=== PATIENT | male | born 1940 | race Caucasian/White ===

== ENCOUNTER → 2016-08-23 | Outpatient (CLI) | payer MEDICARE, BC ==
[~2016-08-23] MED LIST: 1-ME1LIQ PO; ADVA250A INH; ADVAI250I PO; AMLO10 PO; AMLO10TA2 PO; ASPI81TA82 PO; ATEN-100 PO; ATEN25TA PO; ERTA1P IV; LEVO50TA4 PO; VITA10002 PO
[2016-08-23 13:14] LABS: BACTERIA, URINE MANY /hpf; BLOOD, URINE SMALL (NEG); GLUCOSE,URINE NEG (NEG); KETONE, URINE NEG (NEG); MUCUS URINE FEW /lpf (OCC); NITRITE,URINE NEG (NEG); SQUAMOUS EPITHELIAL CELL URINE <1 /hpf (0-5); URINE COLOR YELLOW (YELLW/STRAW)
== END ==
LOC: PLAB 11:04
PROVIDERS: ATTEND Family Medicine
DX: R82.90 Unspecified abnormal findings in urine (principal); R31.9 Hematuria, unspecified; N39.0 Urinary tract infection, site not specified
CPT/HCPCS: 81001

== ENCOUNTER 2016-08-26 18:15 | Inpatient (IN) | payer MEDICARE, BC ==
[~2016-08-26 18:15] MED LIST changes: -ADVA250A INH; -AMLO10 PO; -AMLO10TA2 PO; -ATEN25TA PO
[2016-08-26] MEDS ORDERED: SODIUM CHLORIDE 0.9% FLUSH 5 ML FLUSH FLUSH PRN (19:15)
[2016-08-26] MEDS ORDERED: NALOXONE HCL 0.4 MG/ML AMP IV PRN (19:15)
[2016-08-26] MEDS ORDERED: SENNOSIDES 8.6 MG TAB PO PRN (19:15)
[2016-08-26] MEDS ORDERED: ACETAMINOPHEN 325 MG TAB PO PRN (19:15)
[2016-08-26 19:30] LABS: AUTOMATED NEUTROPHIL # 9.2 TH/MM3 (1.8-7.7); BASOPHIL # 0.1 TH/MM3 (0-0.2); BASOPHIL % 0.4 % (0.0-2.0); EOSINOPHIL # 0.1 TH/MM3 (0-0.4); EOSINOPHIL % 0.5 % (0.0-4.0); HEMO FLAGS DIFF FINAL; LYMPH % 14.6 % (9.0-44.0); LYMPHOCYTE # 1.8 TH/MM3 (1.0-4.8); MEAN CELL VOLUME 78.1 FL (80.0-100.0); MEAN CORPUSCULAR HEMOGLOBIN 25.9 PG (27.0-34.0); MEAN CORPUSCULAR HGB CONC 33.2 % (32.0-36.0); MONO % 10.6 % (0.0-8.0); NEUT % 73.9 % (16.0-70.0); PLATELET COUNT 196 TH/MM3 (150-450); RED BLOOD COUNT 4.61 MIL/MM3 (4.50-5.90); RED CELL DISTRIBUTION WIDTH 15.4 % (11.6-17.2); WHITE BLOOD COUNT 12.5 TH/MM3 (4.0-11.0)
[2016-08-26 19:37] LABS: CHLORIDE 104 MEQ/L (98-107); POTASSIUM 3.5 MEQ/L (3.5-5.1); SODIUM (NA) 140 MEQ/L (136-145)
[2016-08-26 19:41] LABS: ANION GAP 9 MEQ/L (5-15); BICARBONATE 26.8 MEQ/L (21.0-32.0); BLOOD UREA NITROGEN 20 MG/DL (7-18)
[2016-08-26 19:44] LABS: ALT (GPT) 24 U/L (12-78); AST (GOT) 17 U/L (15-37); GLOMERULAR FILTRATION RATE 54 ML/MIN (>89)
[2016-08-26 19:46] LABS: TOTAL BILIRUBIN ADULT 0.4 MG/DL (0.2-1.0)
[2016-08-26 19:47] LABS: ALKALINE PHOSPHATASE 55 U/L (45-117)
[2016-08-26 20:00] VITALS: BP 132/83; PULSE 68; RESP 16; TEMP 98.8; O2SAT 94
[2016-08-26] MEDS: HEPARIN SODIUM - SQ 10,000 UNITS/ML VIAL SQ SCH (21:03)
[2016-08-26] MEDS: BUDESONIDE-FORMOTEROL 160/4.5 MCG INHALER INH SCH (21:04)
[2016-08-26] MEDS: SODIUM CHLORIDE 0.9% FLUSH 5 ML FLUSH FLUSH SCH (21:04)
[2016-08-26] MEDS: IMIPENEM/CILASTATIN INJ 500 MG in SODIUM CHLORIDE 0.9% INJ 100 ML IV SCH (21:33)
[2016-08-26 23:00] VITALS: O2SAT 96
[2016-08-26 23:03] LABS: GLUCOSE,URINE NEG (NEG); KETONE, URINE NEG (NEG)
[2016-08-26 23:21] LABS: BLOOD, URINE MOD (NEG); METHOD OF COLLECTION CLEAN CATCH; NITRITE,URINE POS (NEG); URINE COLOR YELLOW (YELLW/STRAW)
[2016-08-26 23:22] LABS: MUCUS URINE OCC /lpf (OCC)
[2016-08-26 23:23] LABS: BACTERIA, URINE FEW /hpf; COMMENT (UR) CULTURE INDICATED; CULTURE IF INDICATED CULTURE INDICATED; SQUAMOUS EPITHELIAL CELL URINE 0-5 /hpf (0-5); WBC, URINE 100-200 /hpf (0-5)
[2016-08-27] VITALS: BP 114/54; PULSE 62; RESP 16; TEMP 97.8; O2SAT 94
[2016-08-27] MEDS: IMIPENEM/CILASTATIN INJ 500 MG in SODIUM CHLORIDE 0.9% INJ 100 ML IV SCH (02:56)
[2016-08-27 05:39] LABS: AUTOMATED NEUTROPHIL # 7.9 TH/MM3 (1.8-7.7); BASOPHIL % 0.2 % (0.0-2.0); EOSINOPHIL # 0.1 TH/MM3 (0-0.4); EOSINOPHIL % 0.6 % (0.0-4.0); HEMATOCRIT 34.5 % (39.0-51.0); HEMO FLAGS DIFF FINAL; LYMPH % 11.9 % (9.0-44.0); LYMPHOCYTE # 1.2 TH/MM3 (1.0-4.8); MEAN CELL VOLUME 77.9 FL (80.0-100.0); MEAN CORPUSCULAR HEMOGLOBIN 26.2 PG (27.0-34.0); MEAN CORPUSCULAR HGB CONC 33.6 % (32.0-36.0); MONO % 9.4 % (0.0-8.0); NEUT % 77.9 % (16.0-70.0); PLATELET COUNT 175 TH/MM3 (150-450); RED BLOOD COUNT 4.43 MIL/MM3 (4.50-5.90); RED CELL DISTRIBUTION WIDTH 15.3 % (11.6-17.2); WHITE BLOOD COUNT 10.1 TH/MM3 (4.0-11.0)
[2016-08-27] MEDS: LEVOTHYROXINE SODIUM 50 MCG TAB PO SCH (06:20)
--- NOTE | 2016-08-27 06:59 | MH ---
cc: JOSE MEDELLIN M.D. DATE OF ADMISSION: 08/26/2016 CHIEF COMPLAINT Fever. Dysuria. ADMISSION DIAGNOSIS 1. Urinary tract infection with ESBL bacteria. 2. History of abdominal seroma status post urinary neobladder placement. HISTORY OF PRESENT ILLNESS Mr. Ford is a 76-year-old white male with a complicated past medical history. He was had three hospitalizations in the past six months with urinary tract infections and potentially infected abdominal seroma. He has been doing well with his last visit with me about two weeks ago without any fevers since his last hospitalization and IV antibiotics in May when he suddenly started developing some discomfort with urination, cloudy urine and then developed fever to 101 that started on August 22. Over the weekend he has had fevers running 100-101, maybe down to 99 after Tylenol and Motrin. He has noted intermittent low back pain that seems to be resolved with urination. He has had some lower abdominal discomfort but nothing severe. He has had generalized weakness, fatigue, decreased appetite, generally not feeling great. PAST MEDICAL HISTORY: Significant for - 1. Chronic obstructive pulmonary disease. 2. Hypertension. 3. History of thyroid nodule. 4. Vitamin B12 deficiency. 5. Bladder cancer. 6. Sleep apnea. 7. History of basal cell skin cancer. 8. Chronic anemia. 9. Urinary tract infections since March of 2016. 10. Postoperative seroma involving the system over the past year. 11. History of parathyroid nodule. PAST SURGICAL HISTORY 1. Parathyroidectomy in 1974. 2. Knee replacement left in 2012. 3. Bladder resection and neobladder placed in 2004 at [facility]. 4. Basal cell cancer resection of the nose in 2003. 5. Hernia repair inguinal in 2004 about the time of his bladder cancer removal. SOCIAL HISTORY He is . He has a significant other currently. 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 He is a college education. He has rare alcohol. He is a 40 pack-year history smoker, quit in 2004. He has no illicit drug use. MEDICATIONS 1. Bumex 0.5 mg daily for edema. 2. Amlodipine 10 mg daily . 3. Atenolol 25 mg daily. 4. Levothyroxine 50 mcg daily. 5. Advair Diskus 250/50 micrograms one puff p.o. b.i.d. 6. 5000 mcg/mL of vitamin B12 drops daily. 7. C-PAP at night. ALLERGIES No known drug allergies. FAMILY HISTORY Dad of Parkinson's disease at age 77. He had grandparents with cardiovascular disease, stroke, colon cancer and lordosis. Mom at age 74 with Alzheimer's. He does have a son who is present with him in the hospital today, apparently healthy. VACCINATIONS He had a shingles vaccine in 2014. Pneumococcal vaccines in the past, Prevnar given 05/2015. Tetanus vaccine given July 2015. He had his flu vaccine June 12, 2016. REVIEW OF SYSTEMS No upper respiratory infections, no ear pain, no sore throat, no neck discomfort. No cough, no sputum production, no chest discomfort. He has shortness of breath that he relates to the abdominal distension and significant difficulty with bending over and with activity. He has decreased appetite. No nausea, vomiting. No hematochezia or melena. He has had increased abdominal distension despite decreased p.o. intake. He has also had increasing weight despite his change in appetite. He has some lower abdominal discomfort and low back discomfort, dysuria, cloudy urine, no blood in his urine, no changes to his stools. He has had no lower extremity edema. No other skin changes. No rashes. No other signs or symptoms of infection. General malaise. Remainder of his review of systems are negative. OBJECTIVE VITAL SIGNS: I do not have vital signs taken at the time of his initially being seen in the hospital. His pulse rate was in the 70s and regular. He had a log of his temperatures which have gone up to 101 earlier in the day today. IN GENERAL: He is an elderly white male laying in bed, able to get to sitting position with minimal difficulty, speaking without difficulty. He does not seem to have any dizziness with stability. His son is present on exam. HEENT: Pupils equal, reactive. Oropharynx is benign. NECK: Supple without lymphadenopathy. No thyromegaly. No supraclavicular adenopathy. CARDIOVASCULAR: Regular rate and rhythm, somewhat distant. No murmurs audible. LUNGS: Clear to auscultation bilaterally. No wheezes, no rhonchi. Slightly diminished breath sounds. No wheezes. ABDOMEN: Significantly protuberant. He has extensive scarring to the abdomen from his prior surgeries. Positive fluid wave, mild lower abdominal tenderness. Mild heat and lower abdomen but no erythema, no skin lesions that are open. BACK: There is no rash noted to the back other than benign seborrheic keratoses. LOWER EXTREMITIES: No edema. No rashes. No skin lesions. Significant for infection. 1+ dorsalis pedis pulses. He is moving his lower extremities without difficulty. LABORATORY DATA Pending his CBC, blood cultures, lactic acid but those have been ordered. His urinalysis done through my office, results on 08/25/2016 showed greater than 100,000 colonies/mL of Escherichia coli which is resistant to ampicillin, Augmentin, cefazolin, cefepime, ceftriaxone Cipro, gentamicin, Levaquin, nitrofurantoin and Septra. It is sensitive to ertapenem less than 0.5, imipenem less than 0.25, piperacillin/tazobactam 16, tobramycin intermediate at 8. ASSESSMENT AND PLAN 1. ESBL urinary tract infection with potential sepsis. He has had fever to 101, no current tachycardia. Pending his white blood cell count, pending blood cultures. He has had aspiration of his seroma fluid twice in the past 6 months. He has previously had the neobladder placed at the time of his bladder cancer surgery. There was a question of whether he may have had infected mesh and infected seroma back in May at the time of the hospital admission. Also there was a concern that he may have a leak between the neobladder and the seroma. He has previously been seen by Dr. Clark in surgery who really preferred not to do surgery if at all possible due to the risk to the patient. I spoke with Dr. Palomino who is a urologist surgeon up at [facility] who has taken over for his previous surgeon who did his bladder surgery. He currently has his records and is pending a potential consult/evaluation for this issue. He did suggest that if we were to aspirate fluid from the seroma, that we check it for creatinine to see is there is a potential connection between his neobladder and the seroma. This has not been done in the past. We will check an ultrasound of the abdomen and kidneys tomorrow and then potentially consider further aspiration. I have placed him on imipenem overnight and placed a consult to Infectious Disease. He states that the last time I placed him on IV antibiotics at home, the cost was extraordinary and we will need to make sure he does have some sort of coverage at the time of discharge. 2. Abdominal seroma. Consider aspiration tomorrow. However, in the past once he has had aspiration, the fluids has reaccumulated within a few weeks with recurrent shortness of breath. May remove fluid only if needed for diagnostic matters. 3. Hypertension. His blood pressure has been pretty well controlled at home on his current medications. I have written for his blood pressure medications here. We will adjust as needed depending upon his blood pressure readings. Caution if there is any sepsis. 4. History of bladder cancer. There has not been any sign of recurrence. He did have evaluation with Dr. Porter locally over the past year. 5. Hypothyroidism. He will continue his usual home meds. 6. Anemia. He had been stable over years. We will recheck a CBC at this point. There have been no signs of any definite bleeding. 7. Sleep apnea. We will continue him on his C-PAP that he may bring in from home. MD RAVI Valera/PAMELA /9:51 PM /6:27 AM
[2016-08-27 09:00] VITALS: BP 154/91; PULSE 74; RESP 18; TEMP 99.9; O2SAT 94
[2016-08-27] MEDS: IMIPENEM/CILASTAT 500 MG in NS MINIBAG 100 ML IV SCH ×3 (09:00→21:30)
--- NOTE | 2016-08-27 09:31 | RADHPO ---
EXAM DATE/TIME: 08/27/2016 07:44 [facility] COMPARISON: CT ABDOMEN & PELVIS W CONTRAST, May 16, 2016, 15:19. EXTERNAL COMPARISON : [facility], US KIDNEY - BILATERAL, February 27, 2016 INDICATIONS : Abdominal pain. MEDICAL HISTORY : Hypertension. Chronic obstructive pulmonary disease. Carcinoma, bladder. Asthma. Sleep apnea. Dyspnea . UTI. Diabetes. Anxiety. Anticoagulant therapy, Aspirin 81mg. ESBL+Ecoli. SURGICAL HISTORY : Thyroidectomy. Total knee replacement, left. Neobladder. Partial prostate removal. ENCOUNTER: Initial ACUITY: 1 day PAIN SCORE: 110 LOCATION: Abdomen. MEASUREMENTS: LIVER: 22.2 cm length COMMON DUCT: 5 mm RIGHT KIDNEY: 13.0 x 7.1 x 5.8 cm LEFT KIDNEY: 13.4 x 7.2 x cm SPLEEN: 12.3 cm length AORTA: 1.4cm maximal FINDINGS: LIVER: The liver demonstrates homogeneous increased echotexture compared with the adjacent renal cortex cons istent with diffuse fatty infiltration. There are multiple small well-circumscribed appearances are s een, unchanged from prior CT. COMMON DUCT: No intraluminal mass or stone visualized. GALLBLADDER: Contains no stones, demonstrates no wall thickening or pericholecystic fluid. PANCREAS: The visualized portions are within normal limits. RIGHT KIDNEY: No evidence of hydronephrosis or concerning solid mass. Multiple well-circumscribed simple appearing cyst and small echogenic stones are noted. LEFT KIDNEY: No evidence of hydronephrosis or concerning renal mass. Multiple well-circumscribed simple appearing cyst and small nonobstructing echogenic stones. SPLEEN: No focal lesion. AORTA: Non aneurysmal. IVC: Within normal limits. There is a large loculated simple appearing fluid collection identified within the midline abdomen wh ich is grossly unchanged as compared to the prior CT. Current measurements are 18.7 cm transversely b y 23.4 cm craniocaudally by 6 cm anterior-posterior. CONCLUSION: Essentially stable exam. No evidence of concerning hepatic or renal mass. Stable loculated fluid john ection identified within the midline abdomen.. Tiffany Peralta MD on August 27, 2016 at 9:23 Board Certified Radiologist. This report was verified electronically.
[2016-08-27] MEDS: SODIUM CHLORIDE 0.9% FLUSH 5 ML FLUSH FLUSH SCH ×2 (10:30→21:29)
[2016-08-27] MEDS: ATENOLOL 25 MG TAB PO SCH (10:30)
[2016-08-27] MEDS: HEPARIN SODIUM - SQ 10,000 UNITS/ML VIAL SQ SCH ×2 (10:31→21:34)
[2016-08-27] MEDS: BUDESONIDE-FORMOTEROL 160/4.5 MCG INHALER INH SCH ×2 (10:31→21:29)
[2016-08-27 12:00] VITALS: BP 145/98; PULSE 71; RESP 18; TEMP 99.2; O2SAT 96
--- NOTE | 2016-08-27 12:22 | HHI.FPPN ---
Subjective Remarks Feeling worse today, more worn out. No documented fever overnight. Had another episode of back pain that improved with urination. No n/v. no chest pain or SOB , just feeling blah. Objective Vitals Vital Signs Date Time Temp Pulse Resp B/P Pulse Ox O2 Delivery O2 Flow Rate FiO2 08/27/16 09:00 99.9 74 18 154/91 94 08/27/16 00:00 97.8 62 16 114/54 94 08/26/16 23:00 96 21 08/26/16 20:00 98.8 68 16 132/83 94 I/O 08/26/16 08/26/16 08/26/16 08/27/16 08/27/16 08/27/16 07:00 15:00 23:00 07:00 15:00 23:00 Intake Total 400 ml 580 ml Balance 400 ml 580 ml Intake Oral 400 ml 580 ml # Voids 2 2 # Bowel Movements 0 0 Result Diagram: 08/27/16 0445 08/26/161914 Imaging pending u/s of abdomen Objective Remarks Gen: obese WM, sitting to the side of the bed, looking more fatigued, very warm to touch although temp was recently wnl CV: RRR, no murmur Lungs: CTA bilaterally Abd: protuberant, nontender, no CVA tender, Ext: no edema, good ROM Urinary Catheter: No Vascular Central Line Catheter: No A/P Problem List: (1) Urinary tract infection Status: Acute Plan: ESBL bacteria on culture from 10/21/16. Now on imipenem pending ID consult. I have also placed a call to urologic surgeon at [facility] due to his prior bladder cancer, neobladder and hernia mesh present. He has a seroma that is about unchanged in size from May. I have discussed with radiology regarding possible paracentesis but with his mesh, I'd prefer not to risk further infection by entering into the seroma if at all possible. continue the antibiotics for now. WBC was 12.5 last PM with left shift, better today, lactic acid negative. (2) ESBL (extended spectrum beta-lactamase) producing bacteria infection Status: Acute Plan: Now on imipenem and pending ID consult as required. (3) Abdominal wall fluid collections Status: Acute Plan: abdominal seroma. Not sure if it is linked to his neobladder or separate. It keeps reaccumulating when drained. It causes increased SOB with activity and bending. He vfeels much better after drained. (4) Obstructive sleep apnea Status: Acute Plan: use CPAP at night (5) Sepsis Status: Acute Plan: fever to 101, elevated WBC at 12, UTI with ESBL bacteria. negative lactic acid x2 (6) History of bladder cancer Status: Resolved Plan: s/p resection at [facility] in 2004 Problem Qualifiers (1) Urinary tract infection: Qualified Code: N30.00 - Acute cystitis without hematuria (2) Sepsis: Qualified Code: A41.51 - Sepsis due to Escherichia coli Kenia Barraza MD Aug 27, 2016 12:22
[2016-08-27] MEDS ORDERED: ONDANSETRON ODT 4 MG TAB PO PRN (12:30)
[2016-08-27 14:42] LABS: CHLORIDE 107 MEQ/L (98-107); POTASSIUM 3.5 MEQ/L (3.5-5.1); SODIUM (NA) 142 MEQ/L (136-145)
[2016-08-27 14:45] LABS: ANION GAP 8 MEQ/L (5-15); BICARBONATE 26.6 MEQ/L (21.0-32.0); BLOOD UREA NITROGEN 21 MG/DL (7-18)
[2016-08-27 14:48] LABS: ALT (GPT) 22 U/L (12-78); AST (GOT) 15 U/L (15-37); GLOMERULAR FILTRATION RATE 65 ML/MIN (>89)
[2016-08-27 14:50] LABS: TOTAL BILIRUBIN ADULT 0.4 MG/DL (0.2-1.0)
[2016-08-27 14:51] LABS: ALKALINE PHOSPHATASE 50 U/L (45-117)
[2016-08-27 16:00] VITALS: BP 153/86; PULSE 73; RESP 18; TEMP 100.5; O2SAT 94
[2016-08-27 20:00] VITALS: BP 125/66; PULSE 69; RESP 18; TEMP 99.7; O2SAT 92
[2016-08-28] VITALS: BP 123/56; PULSE 66; RESP 20; TEMP 98.8; TEMP 99.2; O2SAT 94
[2016-08-28] MEDS: IMIPENEM/CILASTAT 500 MG in NS MINIBAG 100 ML IV SCH ×4 (02:40→23:47)
[2016-08-28] MEDS: LEVOTHYROXINE SODIUM 50 MCG TAB PO SCH (06:42)
[2016-08-28 08:00] VITALS: BP 123/78; PULSE 63; RESP 20; TEMP 98.1; O2SAT 94
[2016-08-28] MEDS: HEPARIN SODIUM - SQ 10,000 UNITS/ML VIAL SQ SCH ×2 (08:38→22:56)
[2016-08-28] MEDS: SODIUM CHLORIDE 0.9% FLUSH 5 ML FLUSH FLUSH SCH ×2 (08:38→22:58)
[2016-08-28] MEDS: ATENOLOL 25 MG TAB PO SCH (08:38)
[2016-08-28] MEDS: BUDESONIDE-FORMOTEROL 160/4.5 MCG INHALER INH SCH ×2 (08:39→22:56)
--- NOTE | 2016-08-28 08:42 | HHI.FPPN ---
Subjective Remarks Feels better today, wants to go home. No more nausea, energy is better, states urine is still cloudy but clearer than admit. has been active in the room, no more back pain. Objective Vitals Vital Signs Date Time Temp Pulse Resp B/P Pulse Ox O2 Delivery O2 Flow Rate FiO2 08/28/16 00:00 98.8 66 20 123/56 94 08/27/16 20:00 99.7 69 18 125/66 92 08/27/16 16:00 100.5 73 18 153/86 94 08/27/16 12:00 99.2 71 18 145/98 96 08/27/16 09:00 99.9 74 18 154/91 94 I/O 08/27/16 08/27/16 08/27/16 08/28/16 08/28/16 08/28/16 07:00 15:00 23:00 07:00 15:00 23:00 Intake Total 580 ml 660 ml 610 ml 615 ml Balance 580 ml 660 ml 610 ml 615 ml Intake Oral 580 ml 660 ml 480 ml 480 ml IV Total 130 ml 135 ml # Voids 2 3 3 2 # Bowel Movements 0 2 0 Result Diagram: 08/27/165 08/27/165 Objective Remarks Gen: obese WM, sitting to the side of the bed, looking better today, no longer warm to touch Lungs: CTA bilaterally Abd: protuberant, nontender, no CVA tender, Ext: no edema, good ROM Urinary Catheter: No Vascular Central Line Catheter: No A/P Problem List: (1) Urinary tract infection Status: Acute Plan: ESBL bacteria on culture from 10/21/16. Now on imipenem pending ID consult. I spoke with Dr. Palomino at [facility] and he has pt set with their reconstructive surgeon Sep [address] the seroma. CT scan from a few months ago showed that the seroma was linked to the hernia mesh and not to the neobladder. He wants the UTI cleared prior to proceeding with the seroma eval. I have discussed with radiology regarding possible paracentesis but with his mesh, I'd prefer not to risk further infection by entering into the seroma if at all possible. continue the antibiotics for now. WBC was 12.5 last PM with left shift, better today, lactic acid negative. recheck CBC tomorrow and UA (2) ESBL (extended spectrum beta-lactamase) producing bacteria infection Status: Acute Plan: Now on imipenem and pending ID consult as required. I spoke with case drake. Syed from last discharge was not covered by insurance. He may need to do short term rehab for imipenim dosing. Will see if ID has any further suggestions. blood cultures negative to date. (3) Abdominal wall fluid collections Status: Acute Plan: abdominal seroma. Not sure if it is linked to his neobladder or separate (CT scan said it was linked to hernia mesh and not to the neobladder). It keeps reaccumulating when drained. It causes increased SOB with activity and bending. He feels much better after drained. Pending reconstructive surgery consult. (4) Obstructive sleep apnea Status: Acute Plan: use CPAP at night (5) Sepsis Status: Acute Plan: fever to 101, elevated WBC at 12, UTI with ESBL bacteria. negative lactic acid x2, blood cultures negative to date. (6) History of bladder cancer Status: Resolved Plan: s/p resection at [facility] in 2004 Problem Qualifiers (1) Urinary tract infection: Qualified Code: N30.00 - Acute cystitis without hematuria (2) Sepsis: Qualified Code: A41.51 - Sepsis due to Escherichia coli Kenia Barraza MD Aug 28, 2016 08:42
[2016-08-28 12:00] VITALS: BP 130/71; PULSE 65; RESP 20; TEMP 98.2; O2SAT 93
[2016-08-28 16:00] VITALS: BP 161/77; PULSE 64; RESP 20; TEMP 98; O2SAT 97
[2016-08-28] MEDS ORDERED: IMIPENEM/CILASTATIN INJ 500 MG in SODIUM CHLORIDE 0.9% INJ 100 ML IV SCH (17:00)
--- NOTE | 2016-08-28 17:27 | PD.ID.CON ---
History of Present Illness Service ID Consult Requested By dr Hernandez Primary Care Physician Kenia Barraza MD Diagnoses: History of Present Illness Pt known to me 76 yo M H/o bladder cancer sp neobladder, h/o kchronic abd wall collectionpresnted to his PCP office few days ago with fever lower back pain. Urine was abnormal and he grew out ESBL + organism Starte on Primaxin Feels better today and afebrile In pt urine clx cw contam BC neg so far Review of Systems Other as per history of present illness, the rest of 12 point review is otherwise negative Past Family Social History Allergies: Coded Allergies: *MDRO Multi-Drug Resistant Organism (Verified Adverse Reaction, Unknown, 05/20/16) ESBL+E.Coli (urine-05/16/16) Past Medical History COPD Obstructive sleep apnea Hypertension Bladder ca post operative seroma thyroid nodule parathyroid nodule frequent recurrent UTIs Past Surgical History bladder resection and neobladder creation in 2004 hernia repair 2005 knee replacement in 1992 remote parathyroid nodule removal Active Ordered Medications Medications where reviewed in EMR Antibiotics Include: primaxin Family History Non-Contributory. Social History quit tobacco in 2004 rare ETOH. No Illicit Drugs. retired Physical Exam Vital Signs Vital Signs Date Time Temp Pulse Resp B/P Pulse Ox O2 Delivery O2 Flow Rate FiO2 08/28/16 12:00 98.2 65 20 130/71 93 08/28/16 08:00 98.1 63 20 123/78 94 08/28/16 00:00 98.8 66 20 123/56 94 08/27/16 20:00 99.7 69 18 125/66 92 Physical Exam CONSTITUTIONAL/GENERAL: This is an obese elcerly patient, in no apparent distress. TUBES/LINES/DRAINS: SKIN: No jaundice, rashes, or lesions. kin temperature appropriate. Not diaphoretic. HEAD: Atraumatic. Normocephalic. EYES: Pupils equal and round and reactive. Extraocular motions intact. No scleral icterus. No injection or drainage. Fundi not examined. ENT: Hearing grossly normal. Nose without bleeding or purulent drainage. oral mucosae without visible erythema, exudates, masses, or lesions. NECK: Trachea midline. Supple, nontender. No palpable thyroid enlargement or nodularity. CARDIOVASCULAR: Regular rate and rhythm without murmurs, gallops, or rubs. No JVD. Peripheral pulses symmetric. RESPIRATORY/CHEST: Symmetric, unlabored respirations. Clear to auscultation. Breath sounds equal bilaterally. No wheezes, rales, or rhonchi. GASTROINTESTINAL: Abdomen soft, non-tender, nondistended. No hepato-splenomegaly , or palpable masses. No guarding. Bowel sounds present. Multiple scars cw past surg hx Palpable fluctuant noon tender mass w/o skin changes over it GENITOURINARY: Without palpable bladder distension. Fox catheter in place. MUSCULOSKELETAL: Extremities without clubbing, cyanosis, + trace edema. No joint tenderness or effusion noted. + varices No mottling or clubbing. LYMPHATICS: No palpable cervical or supraclavicular adenopathy. NEUROLOGICAL: Awake and alert. Motor and sensory grossly within normal limits. Follows commands. Normal speech. Moves all extremities. PSYCHIATRIC: No obvious anxiety/depression. no apparent hallucinations or other psychotic thought process. Laboratory Date/Time Procedure Status Source Growth 08/26/16 22:50 Urine Culture - Final Complete Urine Clean Catch 10-50,000 CFU/ML MIXED SHABNAM... 08/26/16 19:15 Aerobic Blood Culture - Preliminary Resulted Blood Peripheral NO GROWTH IN 2 DAYS 08/26/16 19:15 Anaerobic Blood Culture - Preliminary Resulted Blood Peripheral NO GROWTH IN 2 DAYS Result Diagram: 08/27/16 0445 08/27/16 0445 Imaging Last Impressions Abdomen Ultrasound 08/27/16 0000 Signed Impressions: Service Date/Time: Saturday, August 27, 2016 07:44 - CONCLUSION: Essentially stable exam. No evidence of concerning hepatic or renal mass. Stable loculated fluid collection identified within the midline abdomen.. Tiffany Peralta MD Assessment and Plan Assessment and Plan Complicated UTI in a pt with neobladder 2/2 ESBL+ - improving on current abx Rexcurrent UTI Chronic abd wall fluid col,llection related to mesh - cont Primaxin or Ertapenem - PICC line - follow BC untill final - dw case mngmt tomorrow Discussed Condition With Dr Hernandez pt and spouse at [facility] Eva Silva MD Aug 28, 2016 17:27
[2016-08-28 20:00] VITALS: BP 158/79; PULSE 71; RESP 18; TEMP 99.1; O2SAT 95
[2016-08-28 20:18] VITALS: O2SAT 97
[2016-08-29] VITALS: BP 145/74; PULSE 64; RESP 18; TEMP 98; O2SAT 97
[2016-08-29] MEDS: LEVOTHYROXINE SODIUM 50 MCG TAB PO SCH (05:21)
[2016-08-29 06:05] LABS: AUTOMATED NEUTROPHIL # 6.5 TH/MM3 (1.8-7.7); BASOPHIL # 0.1 TH/MM3 (0-0.2); BASOPHIL % 0.7 % (0.0-2.0); EOSINOPHIL # 0.1 TH/MM3 (0-0.4); EOSINOPHIL % 1.4 % (0.0-4.0); HEMATOCRIT 33.8 % (39.0-51.0); HEMO FLAGS DIFF FINAL; LYMPH % 17.1 % (9.0-44.0); LYMPHOCYTE # 1.6 TH/MM3 (1.0-4.8); MEAN CELL VOLUME 78.2 FL (80.0-100.0); MEAN CORPUSCULAR HGB CONC 33.3 % (32.0-36.0); MONO % 8.7 % (0.0-8.0); NEUT % 72.1 % (16.0-70.0); PLATELET COUNT 165 TH/MM3 (150-450); RED BLOOD COUNT 4.33 MIL/MM3 (4.50-5.90); RED CELL DISTRIBUTION WIDTH 14.7 % (11.6-17.2); WHITE BLOOD COUNT 9.1 TH/MM3 (4.0-11.0)
[2016-08-29 07:16] LABS: BLOOD, URINE TRACE (NEG); GLUCOSE,URINE NEG (NEG); KETONE, URINE NEG (NEG); NITRITE,URINE NEG (NEG)
[2016-08-29 08:00] VITALS: BP 106/72; PULSE 58; RESP 20; TEMP 97.8; O2SAT 95
[2016-08-29] MEDS: HEPARIN SODIUM - SQ 10,000 UNITS/ML VIAL SQ SCH (08:00)
[2016-08-29 08:03] LABS: METHOD OF COLLECTION CLEAN CATCH; URINE COLOR YELLOW (YELLW/STRAW)
[2016-08-29 08:04] LABS: BACTERIA, URINE OCC /hpf; COMMENT (UR) CULTURE INDICATED; CULTURE IF INDICATED CULTURE INDICATED
[2016-08-29] MEDS ORDERED: ERTA1P IV (08:40)
[2016-08-29] MEDS ORDERED: AMLO10 PO (08:40)
[2016-08-29] MEDS ORDERED: BISACODYL EC 5 MG TABEC PO PRN (08:45)
--- NOTE | 2016-08-29 08:46 | HHI.DS ---
Discharge Summary Admission Date Aug 26, 2016 at 18:15 Discharge Date: Aug 29, 2016 Admitting Diagnosis ESBL UTI with fever, probable sepsis (1) Urinary tract infection Diagnosis: Principal Plan: ESBL bacteria on culture from 10/21/16. Now on imipenem appreciate ID consult. I spoke with Dr. Palomino at [facility] and he has pt set with their reconstructive surgeon Sep [address] seroma. CT scan from a few months ago showed that the seroma was linked to the hernia mesh and not to the neobladder. He wants the UTI cleared prior to proceeding with the seroma eval. I have discussed with radiology regarding possible paracentesis but with his mesh, I'd prefer not to risk further infection by entering into the seroma if at all possible. continue the antibiotics for now. WBC was 12.5 last PM with left shift, better today, lactic acid negative. WBC continues to decline and urine is clearer although not completely cleared. D/w Dr. Silva yesterday and will need a total of 14 day therapy. Will discharge home later today with another 10 days of ertapenem. Pt does not want to go to rehab and he states he will fight with his insurance [employer] to get coverage of the once daily invanz therapy to do at home instead. Pt is completely mobile and not needing PT, just antibiotic therapy and he would be more than capable of doing that at home with less risk of infection to himself and others. Don't need to bring resistant bacteria to a detention if not absolutely necessary. (2) ESBL (extended spectrum beta-lactamase) producing bacteria infection Diagnosis: Principal Plan: complete 10 days of therapy. will change to INVANZ so he can go home. See other note. Will see if ID has any further suggestions. blood cultures negative to date. (3) Abdominal wall fluid collections Diagnosis: Secondary Plan: abdominal seroma. Not sure if it is linked to his neobladder or separate (CT scan said it was linked to hernia mesh and not to the neobladder). It keeps reaccumulating when drained. It causes increased SOB with activity and bending. He feels much better after drained. Pending reconstructive surgery consult. (4) Obstructive sleep apnea Diagnosis: Secondary Plan: use CPAP at night (5) Sepsis Diagnosis: Principal Plan: fever to 101, elevated WBC at 12, UTI with ESBL bacteria. negative lactic acid x2, blood cultures negative to date. No fever for the past day and overall feeling much better. Anxious to get home. (6) History of bladder cancer Diagnosis: Secondary Plan: s/p resection at [facility] in [address] Silva (ID) Procedures PICC line placement Brief History 76 yo WM with extensive past medical history, had ESBL UTI 2 times prior to this admission, last in May 2016. Now with start of cloudy urine, fever, 4 days prior to admit. Admitted for IV antibiotics due to resistance. CBC/BMP: 08/29/16 0508 08/27/16 0445 Significant Findings Laboratory Tests Test 08/26/16 08/26/16 08/27/16 08/29/16 19:15 22:50 04:45 05:08 White Blood Count 12.5 TH/MM3 (4.0-11.0) Hemoglobin 12.0 GM/DL 11.6 GM/DL 11.3 GM/DL (13.0-17.0) (13.0-17.0) (13.0-17.0) Hematocrit 36.0 % 34.5 % 33.8 % (39.0-51.0) (39.0-51.0) (39.0-51.0) Mean Corpuscular Volume 78.1 FL 77.9 FL 78.2 FL (80.0-100.0) (80.0-100.0) (80.0-100.0) Mean Corpuscular Hemoglobin 25.9 PG 26.2 PG 26.0 PG (27.0-34.0) (27.0-34.0) (27.0-34.0) Neutrophils (%) (Auto) 73.9 % 77.9 % 72.1 % (16.0-70.0) (16.0-70.0) (16.0-70.0) Monocytes (%) (Auto) 10.6 % 9.4 % (0.0-8.0) 8.7 % (0.0-8.0) (0.0-8.0) Neutrophils # (Auto) 9.2 TH/MM3 7.9 TH/MM3 (1.8-7.7) (1.8-7.7) Monocytes # (Auto) 1.3 TH/MM3 (0-0.9) Blood Urea Nitrogen 20 MG/DL (7-18) 21 MG/DL (7-18) Estimat Glomerular Filtration 54 ML/MIN (>89) 65 ML/MIN (>89) Rate Random Glucose 111 MG/DL (74-106) Albumin 3.1 GM/DL 2.8 GM/DL (3.4-5.0) (3.4-5.0) Urine Turbidity MOD (CLEAR) Urine Protein 30 mg/dL (NEG-TRACE) Urine Occult Blood MOD (NEG) Urine Nitrite POS (NEG) Urine Leukocyte Esterase MOD (NEG) Urine RBC 4-9 /hpf (0-3) Urine WBC 100-200 /hpf (0-5) Urine WBC Clumps FEW (NONE) Urine Bacteria FEW /hpf (NONE) Red Blood Count 4.43 MIL/MM3 4.33 MIL/MM3 (4.50-5.90) (4.50-5.90) Calcium Level 8.3 MG/DL (8.5-10.1) Test 08/29/16 06:45 Urine Occult Blood TRACE (NEG) Urine Leukocyte Esterase SMALL (NEG) Urine RBC 4-9 /hpf (0-3) Urine WBC 20-24 /hpf (0-5) Urine Bacteria OCC /hpf (NONE) PE at Discharge Gen: obese WM, sitting to the side of the bed, looking better today, no longer warm to touch, here with his sign other Lungs: CTA bilaterally Abd: protuberant, nontender, no CVA tender, Ext: no edema, good ROM Hospital Course He felt poorly on day #2 but has been doing better each day. Feels back to his normal self and anxious to increase activity at home Pt Condition on Discharge: Good Discharge Disposition: Disch w/ Home Health Serv (Needs home health for IV antibiotics) Discharge Instructions DIET: Follow Instructions for: Heart Healthy Diet Activities you can perform: Regular-No Restrictions Kenia Barraza MD Aug 29, 2016 08:46
--- NOTE | 2016-08-29 08:48 | HHI.FF ---
Face to Face Verification Diagnosis: (1) ESBL (extended spectrum beta-lactamase) producing bacteria infection (2) Urinary tract infection (3) Sepsis Home Health Nursing Order: Medication education-adverse effect Nursing assessment with vital signs IV medication administration I have seen patient Josselyn Ford on 08/29/16. My clinical findings support the need for the requested home health care services because: Infection w/ risk of complications Injectable med education/admin I certify that my clinical findings support that this patient is homebound because: Unsafe to leave home unassisted Illness and need for IV antibiotics, risk of decline due to resistant bacteria Kenia Barraza MD Aug 29, 2016 08:48
[2016-08-29] MEDS: IMIPENEM/CILASTAT 500 MG in NS MINIBAG 100 ML IV SCH ×2 (09:00→17:07)
[2016-08-29] MEDS: BUDESONIDE-FORMOTEROL 160/4.5 MCG INHALER INH SCH (09:00)
[2016-08-29] MEDS: SODIUM CHLORIDE 0.9% FLUSH 5 ML FLUSH FLUSH SCH (09:00)
[2016-08-29] MEDS: ATENOLOL 25 MG TAB PO SCH (09:00)
[2016-08-29 12:00] VITALS: BP 121/85; PULSE 61; RESP 20; TEMP 96.8; O2SAT 96
--- NOTE | 2016-08-29 15:55 | RADHPO ---
EXAM DATE/TIME: 08/29/2016 15:39 [facility] COMPARISON: CHEST SINGLE AP, May 20, 2016, 17:07. INDICATIONS : Post PICC Line placement. MEDICAL HISTORY : None. SURGICAL HISTORY : PICC line ENCOUNTER: Initial ACUITY: 1 day PAIN SCORE: 0/10 LOCATION: Bilateral chest FINDINGS: A right-sided PICC line has its tip in the superior vena cava. The heart is stable. The pulmonary v ascular pattern is normal. The lungs are clear. Degenerative changes are noted involving the shoulde rs bilaterally. CONCLUSION: 1. Right-sided PICC line has its tip in the superior vena cava in good position. 2. No acute cardiopulmonary disease. Mao Rolle MD on August 29, 2016 at 15:50 Board Certified Radiologist. This report was verified electronically.
[2016-08-29 16:00] VITALS: BP 140/81; PULSE 68; RESP 20; TEMP 96.8; O2SAT 98
== END 2016-08-29 19:16 | disposition home or self-care (01) | DRG 872 ==
LOC: PH3A 18:15
PROVIDERS: ADMIT Family Medicine; ATTEND Family Medicine
PROC: 02HV33Z Insertion of Infusion Device into Superior Vena Cava, Percutaneous Approach (ICD-10-PCS; principal; 2016-08-29)
PROC: B548ZZA Ultrasonography of Superior Vena Cava, Guidance (ICD-10-PCS; 2016-08-29)
DX: A41.9 Sepsis, unspecified organism (principal); N39.0 Urinary tract infection, site not specified; N99.842 Postprocedural seroma of a genitourinary system organ or structure following a genitourinary system procedure; J44.9 Chronic obstructive pulmonary disease, unspecified; B96.89 Other specified bacterial agents as the cause of diseases classified elsewhere; Z16.12 Extended spectrum beta lactamase (ESBL) resistance; G47.33 Obstructive sleep apnea (adult) (pediatric); Z85.51 Personal history of malignant neoplasm of bladder; E66.9 Obesity, unspecified; I10 Essential (primary) hypertension; D64.9 Anemia, unspecified; Z85.828 Personal history of other malignant neoplasm of skin; Z96.652 Presence of left artificial knee joint; Z87.891 Personal history of nicotine dependence; E03.9 Hypothyroidism, unspecified
CPT/HCPCS: 36569; 71010; 76700; 76937; 80053; 81001; 83605; 85025; 87040; 87086; J0743; J1644

== ENCOUNTER 2016-12-13 15:22 | Emergency (ER) | payer MEDICARE, BC ==
[~2016-12-13] VITALS: Ht 182.9 cm; Wt 141.0 kg
[~2016-12-13 15:22] MED LIST changes: +AMLO10 PO
[2016-12-13 15:23] VITALS: BP 160/75; PULSE 64; RESP 19; TEMP 97.9; O2SAT 97
--- NOTE | 2016-12-13 15:31 | PD ---
Physical Exam Date Seen by Provider: Dec 13, 2016 Time Seen by Provider: 15:28 Narrative 76 yo male that presents to the ED for SOB. He had surgery november 07 for hernia with seroma and has had pain on his groin and believes seroma might be back and this might be pressing on his lungs. SOB worsening the past couple of days. No injury. Pain is 4/10 on the left groin area. No chest pain. Vitals sign stable. Patient awaiting bed placement. Data Data Last Documented VS Vital Signs Date Time Temp Pulse Resp B/P Pulse Ox O2 Delivery O2 Flow Rate FiO2 12/13/16 15:23 97.9 64 19 160/75 97 Room Air [facility] Medical Record Reviewed: Yes Supervised Visit with ALFIE: Raj Mart Dec 13, 2016 15:31
[2016-12-13 17:19] LABS: BACTERIA, URINE FEW /hpf; BLOOD, URINE TRACE (NEG); COMMENT (UR) CULTURE INDICATED; CULTURE IF INDICATED CULTURE INDICATED; GLUCOSE,URINE NEG (NEG); KETONE, URINE NEG (NEG); MUCUS URINE FEW /lpf (OCC); NITRITE,URINE NEG (NEG); SQUAMOUS EPITHELIAL CELL URINE <1 /hpf (0-5); URINE COLOR YELLOW (YELLW/STRAW)
[2016-12-13 17:53] VITALS: BP 141/67; PULSE 64; RESP 18; O2SAT 98
[2016-12-13] MEDS ORDERED: LEVO50TA4 PO (17:58)
[2016-12-13] MEDS ORDERED: ADVA250A INH (17:58)
[2016-12-13] MEDS ORDERED: AMLO10TA2 PO (17:58)
[2016-12-13] MEDS ORDERED: ATEN25TA PO (17:58)
--- NOTE | 2016-12-13 18:17 | PD ---
HPI Chief Complaint: Respiratory Symptoms Time Seen by Provider: 18:17 Travel History International Travel<30 days: No Contact w/Intl Traveler<30days: No Traveled to known affect area: No History of Present Illness HPI 76-year-old male with PMH of COPD, HTN, LAURI, bladder cancer status post cystectomy with neobladder construction presents to the ED for evaluation of increasing abdominal girth and shortness of breath. Patient underwent hernia repair and mesh removal on 11/[address] [place] [address] Jaycob Donaldson. States at that time he also had a large seroma in the left abdomen. He's had multiple follow-ups, last visit 2 weeks ago. Also has a home health nurse for wound care. He states that he feels as if his abdomen has gotten bigger over the last couple days. His wound nurse came today and was also concerned enough to send him to the hospital. He states that yesterday while attempting to walk around the mall he was very short of breath, more so than normal, and he feels as if this may be secondary to return of the seroma. Also complains of 4/10 left-sided groin pain similar to previous pain prior to his latest surgery. Denies scrotal changes. He denies fever, chills, cough, chest pain, palpitations, anorexia, nausea, vomiting, changes in bowel habits, dysuria, hematuria, swelling of the lower extremities. He has follow-up with Dr. Donaldson in [address] Barraza. PFSH Past Medical History Hx Anticoagulant Therapy: Yes (asa 81mg) Arthritis: No Asthma: Yes Autoimmune Disease: No Anxiety: Yes Depression: No Heart Rhythm Problems: No Cancer: Yes (bladder cancer) Cardiovascular Problems: Yes High Cholesterol: No Chemotherapy: No Chest Pain: No Congestive Heart Failure: No COPD: Yes Diabetes: Yes (pre-diabetic) Endocrine: Yes Genitourinary: Yes Hypertension: Yes Immune Disorder: No Implanted Vascular Access Dvce: Yes Musculoskeletal: Yes Neurologic: No Psychiatric: No Reproductive: No Respiratory: Yes Radiation Therapy: No Sickle Cell Disease: No Sleep Apnea: Yes (CPAP) Thyroid Disease: Yes (thyroidectomy PARTIAL) Past Surgical History Abdominal Surgery: Yes (HERNIA REPAIR WITH MESH REMOVAL WITH CIROMA DRAINAGE) AICD: No Arteriovenous Shunt: No Body Medical Devices: JOLANTA BLADDER Cardiac Surgery: No Ear Surgery: No Endocrine Surgery: No Eye Surgery: No Gynecologic Surgery: No Insulin Pump: No Joint Replacement: Yes (left knee replacement 2012) Oral Surgery: No Pacemaker: No Thoracic Surgery: No Other Surgery: Yes (thyroidectomy/PARTIAL) Social History Alcohol Use: Yes (rare) Tobacco Use: No (quit 1994) Substance Use: No Allergies-Medications (Allergen,Severity, Reaction): Coded Allergies: Potassium (Verified Adverse Reaction, Intermediate, delgadillo veins per pt, ) no iv K+ *MDRO Multi-Drug Resistant Organism (Verified Adverse Reaction, Unknown, ) ESBL+E.Coli (urine-05/16/16) Reported Meds & Prescriptions Reported Meds & Active Scripts Active Reported Advair Diskus Inh (Fluticasone-Salmeterol Inh) 250-50 Mcg/Blist Aer 1 Puff INH BID Rinse mouth after use. Atenolol 25 Mg Tab 25 Mg PO DAILY Levothyroxine (Levothyroxine Sodium) 50 Mcg Tab 50 Mcg PO DAILY Amlodipine (Amlodipine Besylate) 10 Mg Tab 10 Mg PO DAILY Review of Systems Except as stated in HPI: all other systems reviewed are Neg Physical Exam Narrative GENERAL: Well-nourished, well-developed very pleasant white male in no acute distress. SKIN: Focused skin assessment warm/dry. There is a well healing ~30 cm midline abdominal incision with bolsters in place. There is a surrounding zone of mild erythema. No warmth or tenderness to palpation. HEAD: Normocephalic. EYES: No scleral icterus. No injection or drainage. NECK: Supple, trachea midline. No JVD or lymphadenopathy. CARDIOVASCULAR: Regular rate and rhythm without murmurs, gallops, or rubs. 2+ DP and radial pulses bilaterally. RESPIRATORY: Breath sounds equal bilaterally. Mild, diffuse, end expiratory wheezes in bilateral lung dhaliwal. No accessory muscle use. GASTROINTESTINAL: Abdomen protuberant, mild diffuse tenderness. No fluid wave. No palpable masses. GENITOURINARY: No TTP in the left groin. No scrotal edema noted. MUSCULOSKELETAL: No cyanosis, or edema. BACK: Nontender without obvious deformity. No CVA tenderness. Data Data Last Documented VS Vital Signs Date Time Temp Pulse Resp B/P Pulse Ox O2 Delivery O2 Flow Rate FiO2 12/13/16 21:18 76 18 132/72 94 Room Air 12/13/16 15:23 97.9 Orders Complete Blood Count With Diff (12/13/16 16:32) Comprehensive Metabolic Panel (12/13/16 16:32) Prothrombin Time / Inr (Pt) (12/13/16 16:32) Act Partial Throm Time (Ptt) (12/13/16 16:32) Lipase (12/13/16 16:32) Urinalysis - C+S If Indicated (12/13/16 16:32) Urine Culture (12/13/16 16:30) Electrocardiogram (12/13/16 17:59) Ct Abd/Pel W/O Iv Contrast (12/13/16 18:36) Chest, Single Ap (12/13/16 ) Labs Laboratory Tests Test 12/13/16 12/13/16 16:30 19:15 Urine Color YELLOW Urine Turbidity HAZY Urine pH 6.0 Urine Specific [place] 1.012 Urine Protein TRACE mg/dL Urine Glucose (UA) NEG mg/dL Urine Ketones NEG mg/dL Urine Occult Blood TRACE Urine Nitrite NEG Urine Bilirubin NEG Urine Urobilinogen LESS THAN 2.0 MG/DL Urine Leukocyte Esterase SMALL Urine RBC 9 /hpf Urine WBC 74 /hpf Urine Squamous Epithelial <1 /hpf Cells Urine Bacteria FEW /hpf Urine Mucus FEW /lpf Microscopic Urinalysis Comment CULTURE INDICATED White Blood Count 11.9 TH/MM3 Red Blood Count 5.02 MIL/MM3 Hemoglobin 12.9 GM/DL Hematocrit 39.8 % Mean Corpuscular Volume 79.3 FL Mean Corpuscular Hemoglobin 25.7 PG Mean Corpuscular Hemoglobin 32.5 % Concent Red Cell Distribution Width 16.5 % Platelet Count 217 TH/MM3 Mean Platelet Volume 9.6 FL Neutrophils (%) (Auto) 72.9 % Lymphocytes (%) (Auto) 17.2 % Monocytes (%) (Auto) 7.9 % Eosinophils (%) (Auto) 1.1 % Basophils (%) (Auto) 0.9 % Neutrophils # (Auto) 8.6 TH/MM3 Lymphocytes # (Auto) 2.0 TH/MM3 Monocytes # (Auto) 0.9 TH/MM3 Eosinophils # (Auto) 0.1 TH/MM3 Basophils # (Auto) 0.1 TH/MM3 CBC Comment DIFF FINAL Differential Comment Prothrombin Time 10.7 SEC Prothromb Time International 1.0 RATIO Ratio Activated Partial 28.5 SEC Thromboplast Time Sodium Level 139 MEQ/L Potassium Level 3.8 MEQ/L Chloride Level 103 MEQ/L Carbon Dioxide Level 29.1 MEQ/L Anion Gap 7 MEQ/L Blood Urea Nitrogen 18 MG/DL Creatinine 1.02 MG/DL Estimat Glomerular Filtration 71 ML/MIN Rate Random Glucose 84 MG/DL Calcium Level 9.1 MG/DL Total Bilirubin 0.5 MG/DL Aspartate Amino Transf 13 U/L (AST/SGOT) Alanine Aminotransferase 17 U/L (ALT/SGPT) Alkaline Phosphatase 79 U/L Total Protein 7.5 GM/DL Albumin 3.6 GM/DL Lipase 128 U/L [facility] Medical Decision Making Medical Screen Exam Complete: Yes Emergency Medical Condition: Yes Differential Diagnosis seroma versus pneumonia versus wound infection versus dehiscence versus free air versus COPD exacerbation versus other Narrative Course 76-year-old male with PMH of COPD, HTN, LAURI, bladder cancer s/p cystectomy with neobladder construction presents to the ED for evaluation of increasing abdominal girth and shortness of breath. Patient underwent ventral hernia repair and mesh removal on 11/[address] in [place] [address] Dr. Jaycob Donaldson. States at that time he also had a large seroma in the left abdomen. He's had multiple follow-ups, last visit 2 weeks ago. Also has a home health nurse for wound care. He complains of dyspnea on exertion which he attributes to increasing abdominal girth over the last 2 days. Also complains of 4/10 left-sided groin pain without scrotal changes. He denies fever, chills, chest pain, palpitations , anorexia, nausea, vomiting, changes in bowel habits, dysuria, hematuria, swelling of the lower extremities. PCP Dr. Barraza. Vitals reviewed. Patient afebrile on presentation. O2 sats 97% on room air. Physical exam reveals a pleasant, obese white male in no acute distress. Chest is CTAB. No appreciable M/R/G. There is a well-healing midline abdominal scar with blisters in place. There is a small zone of inflammation without signs of infection. Mild, diffuse tenderness of the abdomen. No definite fluid wave. No tenderness to palpation of the left groin. No scrotal edema. No lower extremity edema. IV was established. Patient was placed on continuous monitoring. CBC: WBC 11.9, 72.9% neutrophils. Hemoglobin 12.9 CMP: Unremarkable UA: Hazy, trace occult blood, small leukocyte esterase, 9 RBCs, 74 WBCs, few bacteria, few mucus. Culture pending. CXR: No acute disease. CT OF THE ABDOMEN AND PELVIS: 1. Status post cystectomy with neobladder and ileal loop. 2. Multiple segments of small bowel abut the inner surface of the anterior abdominal wall suggesting adhesions. Significantly dilated bowels are NOT seen. 3. Stable 1.47cm hypodense mass in the liver questionable cyst or hemangioma. 4. Left adrenal gland adenoma. 5.Multiple renal cysts. I discussed the workup with the patient's surgeon in [place], Dr. Jaycob Donaldson. He is agreeable to discharge with follow-up in 5 days as previously planned. He instructs the patient to reach him by call center should he have any other issues. Dr. Rodriguez and I discussed this plan with the patient and his family who are agreeable. Patient is instructed to return to normal, gentle activity as tolerated, return for worsening symptoms, follow-up with Dr. Donaldson as instructed. He indicated understanding of the instructions. The patient is stable and discharged home. Diagnosis Primary Impression: Abdominal bloating Additional Impression: HARRELL (dyspnea on exertion) Referrals: Dr. Jaycob Donaldson Additional Instructions: Rest, hydrate. Resume outpatient medications as prescribed. Resume normal, gentle activities as tolerated, follow-up with Dr. Donaldson as discussed. Return to the ED for worsening of symptoms or any urgent or emergent medical condition. Disposition: 01 DISCHARGE HOME Condition: Stable Liss Dewey Dec 13, 2016 18:17
[2016-12-13 19:48] LABS: AUTOMATED NEUTROPHIL # 8.6 TH/MM3 (1.8-7.7); BASOPHIL # 0.1 TH/MM3 (0-0.2); BASOPHIL % 0.9 % (0.0-2.0); EOSINOPHIL # 0.1 TH/MM3 (0-0.4); EOSINOPHIL % 1.1 % (0.0-4.0); HEMATOCRIT 39.8 % (39.0-51.0); HEMO FLAGS DIFF FINAL; LYMPH % 17.2 % (9.0-44.0); MEAN CELL VOLUME 79.3 FL (80.0-100.0); MEAN CORPUSCULAR HEMOGLOBIN 25.7 PG (27.0-34.0); MEAN CORPUSCULAR HGB CONC 32.5 % (32.0-36.0); MONO % 7.9 % (0.0-8.0); NEUT % 72.9 % (16.0-70.0); PLATELET COUNT 217 TH/MM3 (150-450); RED BLOOD COUNT 5.02 MIL/MM3 (4.50-5.90); RED CELL DISTRIBUTION WIDTH 16.5 % (11.6-17.2); WHITE BLOOD COUNT 11.9 TH/MM3 (4.0-11.0)
--- NOTE | 2016-12-13 19:48 | RADRPT ---
EXAM DATE/TIME: 12/13/2016 19:09 [facility] COMPARISON: CT ABDOMEN & PELVIS W CONTRAST, May 16, 2016, 15:19. CT ABDOMEN & PELV IS W/O CONTRAST, April 03, 2016, 14:47. INDICATIONS : Distention in abdomen area. ORAL CONTRAST: No oral contrast ingested. RADIATION DOSE: 31.21 CTDIvol (mGy) MEDICAL HISTORY : Cardiovascular disease. Hypertension. Diabetes mellitus type 2.Bladder Cancer. SURGICAL HISTORY : Revision ventral hernia preformed on 11/07/16 ENCOUNTER: Initial ACUITY: 1 week PAIN SCALE: 8/10 LOCATION: Abdomen TECHNIQUE: Volumetric scanning of the abdomen and pelvis was performed. Using automated exposure control and adjustment of the mA and/or kV according to patient size, radiation dose was kept as low as reasonably achievable to obtain optimal diagnostic quality images. FINDINGS: The patient is status post cystectomy with construction of an ileal loop and neobladder . Several segments of small bowel abut the undersurface of the anterior abdominal wall. The patient previously had hernia mesh seen in this region. The hernia mess appears to have been removed. The small bowel still appears to be related to the undersurface of the anterior abdominal wall which coul d be seen with adhesions. This appearance was present previously. Significant bowel dilatation is n ot clearly seen. There do appear to be numerous diverticula in the sigmoid colon and descending colon without significant inflammatory change. There is a persistent 1.4 cm hypodensity identified in the lateral segment of the left lobe of the li chapito. This is nonspecific. It is unchanged. The spleen, pancreas and right adrenal gland are normal. The patient has a persistent 2.7 cm mass at the left adrenal gland. This measures minus 2 Hounsfiel d units and is consistent with an adenoma. There are multiple cysts seen at the kidneys bilaterally. There is tiny calcification in the right mid kidney which may represent a small nonobstructing ston e versus a cortical calcification. It only measures 2 mm. It was present previously. The ureters a re seen directed to the right lower quadrant to a segment of ilium. Extensive clips are seen in the lower retroperitoneum. The lung bases are clear. There is degenerative change in the lower lumbar spine. The patient is st atus post prostatectomy. CONCLUSION: 1. Status post cystectomy with a neobladder and ileal loop. 2. Multiple segments of small bowel that appear to abut the inner surface of the anterior abdominal w all suggesting adhesions. This appearance was present previously. Significantly dilated bowel is not seen. 3. Stable 1.4 cm hypodense mass in the liver. Statistically it likely represents a cyst or hemangioma . 4. Left adrenal gland adenoma. 5. Multiple renal cysts. Pancho Renteria MD on December 13, 2016 at 19:17 Board Certified Radiologist. This report was verified electronically.
[2016-12-13 20:07] LABS: APTT (PATIENT) 28.5 SEC (24.3-30.1); PROTHROMBIN TIME - PATIENT 10.7 SEC (9.8-11.6)
[2016-12-13 20:11] LABS: ANION GAP 7 MEQ/L (5-15); AST (GOT) 13 U/L (15-37); BICARBONATE 29.1 MEQ/L (21.0-32.0); BLOOD UREA NITROGEN 18 MG/DL (7-18); CHLORIDE 103 MEQ/L (98-107); GLOMERULAR FILTRATION RATE 71 ML/MIN (>89); POTASSIUM 3.8 MEQ/L (3.5-5.1); SODIUM (NA) 139 MEQ/L (136-145)
[2016-12-13 20:15] LABS: ALKALINE PHOSPHATASE 79 U/L (45-117); ALT (GPT) 17 U/L (12-78); TOTAL BILIRUBIN ADULT 0.5 MG/DL (0.2-1.0)
[2016-12-13 21:18] VITALS: BP 132/72; PULSE 76; RESP 18; O2SAT 94
--- NOTE | 2016-12-13 21:35 | PD ---
Physical Exam Narrative I, Dr. Rodriguez, have reviewed the advance practice practitioner's documentation and am in agreement, met with the patient face to face, made the diagnosis, and the medical decision making was done by me. *My assessment and Findings: SOB secondary to abdominal distension vs. pneumonia vs. CHF 76yo M with bladder CA and recent hernia repair at [facility] here with abdominal distension. Abdominal exam is nontender, distended. Lungs are clear bilaterally. Pt states he is not sob at rest but sob with exertion. Labs reviewed, mild leukocytosis at 11.9. CMP and lipase unremarkable. UA showed WBC 74 but pt has had this multiple times and it is chronic. CTa/p did not show anything acute. Pt is status post cystectomy with a neobladder and ileal loop. CXR negative. Pt is comfortable and wants to go home. My PA discussed case with his surgeon and he has follow up. Data Data Last Documented VS Vital Signs Date Time Temp Pulse Resp B/P Pulse Ox O2 Delivery O2 Flow Rate FiO2 12/13/16 21:18 76 18 132/72 94 Room Air 12/13/16 15:23 97.9 Orders Complete Blood Count With Diff (12/13/16 16:32) Comprehensive Metabolic Panel (12/13/16 16:32) Prothrombin Time / Inr (Pt) (12/13/16 16:32) Act Partial Throm Time (Ptt) (12/13/16 16:32) Lipase (12/13/16 16:32) Urinalysis - C+S If Indicated (12/13/16 16:32) Urine Culture (12/13/16 16:30) Electrocardiogram (12/13/16 17:59) Ct Abd/Pel W/O Iv Contrast (12/13/16 18:36) Chest, Single Ap (12/13/16 ) Labs Laboratory Tests Test 12/13/16 12/13/16 16:30 19:15 Urine Color YELLOW Urine Turbidity HAZY Urine pH 6.0 Urine Specific [place] 1.012 Urine Protein TRACE mg/dL Urine Glucose (UA) NEG mg/dL Urine Ketones NEG mg/dL Urine Occult Blood TRACE Urine Nitrite NEG Urine Bilirubin NEG Urine Urobilinogen LESS THAN 2.0 MG/DL Urine Leukocyte Esterase SMALL Urine RBC 9 /hpf Urine WBC 74 /hpf Urine Squamous Epithelial <1 /hpf Cells Urine Bacteria FEW /hpf Urine Mucus FEW /lpf Microscopic Urinalysis Comment CULTURE INDICATED White Blood Count 11.9 TH/MM3 Red Blood Count 5.02 MIL/MM3 Hemoglobin 12.9 GM/DL Hematocrit 39.8 % Mean Corpuscular Volume 79.3 FL Mean Corpuscular Hemoglobin 25.7 PG Mean Corpuscular Hemoglobin 32.5 % Concent Red Cell Distribution Width 16.5 % Platelet Count 217 TH/MM3 Mean Platelet Volume 9.6 FL Neutrophils (%) (Auto) 72.9 % Lymphocytes (%) (Auto) 17.2 % Monocytes (%) (Auto) 7.9 % Eosinophils (%) (Auto) 1.1 % Basophils (%) (Auto) 0.9 % Neutrophils # (Auto) 8.6 TH/MM3 Lymphocytes # (Auto) 2.0 TH/MM3 Monocytes # (Auto) 0.9 TH/MM3 Eosinophils # (Auto) 0.1 TH/MM3 Basophils # (Auto) 0.1 TH/MM3 CBC Comment DIFF FINAL Differential Comment Prothrombin Time 10.7 SEC Prothromb Time International 1.0 RATIO Ratio Activated Partial 28.5 SEC Thromboplast Time Sodium Level 139 MEQ/L Potassium Level 3.8 MEQ/L Chloride Level 103 MEQ/L Carbon Dioxide Level 29.1 MEQ/L Anion Gap 7 MEQ/L Blood Urea Nitrogen 18 MG/DL Creatinine 1.02 MG/DL Estimat Glomerular Filtration 71 ML/MIN Rate Random Glucose 84 MG/DL Calcium Level 9.1 MG/DL Total Bilirubin 0.5 MG/DL Aspartate Amino Transf 13 U/L (AST/SGOT) Alanine Aminotransferase 17 U/L (ALT/SGPT) Alkaline Phosphatase 79 U/L Total Protein 7.5 GM/DL Albumin 3.6 GM/DL Lipase 128 U/L [facility] Supervised Visit with ALFIE: Yes Interpretation(s) EKG: NSR 61bpm. Normal axis. No ST segment elevation or depression. Diagnosis Primary Impression: Abdominal bloating Additional Impression: HARRELL (dyspnea on exertion) Referrals: Dr. Jaycob Donaldson Additional Instruction: Rest, hydrate. Resume outpatient medications as prescribed. Resume normal, gentle activities as tolerated, follow-up with Dr. Donaldson as discussed. Return to the ED for worsening of symptoms or any urgent or emergent medical condition. Disposition: 01 DISCHARGE HOME Condition: Stable Yaa Rodriguez DO Dec 13, 2016 21:35
--- NOTE | 2016-12-13 21:42 | RADRPT ---
EXAM DATE/TIME: 12/13/2016 20:57 [facility] COMPARISON: CHEST SINGLE AP, August 29, 2016, 15:39. INDICATIONS : Shortness of breath. MEDICAL HISTORY : None. SURGICAL HISTORY : None. ENCOUNTER: Initial ACUITY: 1 day PAIN SCORE: 0/10 LOCATION: Bilateral chest FINDINGS: A single view of the chest demonstrates the lungs to be symmetrically aerated without evidence of mas s, infiltrate or effusion. The cardiomediastinal contours are unremarkable. Osseous structures are intact. CONCLUSION: No acute disease. Pancho Renteria MD on December 13, 2016 at 21:39 Board Certified Radiologist. This report was verified electronically.
--- NOTE | 2016-12-14 19:20 | EKG ---
Date Performed: 12/13/2016 Time Performed: 18:05:17 PTAGE: 76 years EKG: Sinus rhythm NORMAL ECG NO PREVIOUS TRACING DOCTOR: Bethel Quinn Interpretating Date/Time 12/14/2016 19:18:37
== END 2016-12-13 21:59 | disposition home or self-care (01) ==
LOC: NEPC 15:22
DX: R14.0 Abdominal distension (gaseous) (principal); R06.09 Other forms of dyspnea; I10 Essential (primary) hypertension; R73.03 Prediabetes; J44.9 Chronic obstructive pulmonary disease, unspecified; Z85.51 Personal history of malignant neoplasm of bladder; Z79.82 Long term (current) use of aspirin; Z98.890 Other specified postprocedural states
CPT/HCPCS: 71010; 74176; 80053; 81001; 83690; 85025; 85610; 85730; 87086; 93005

== ENCOUNTER → 2017-02-07 | Outpatient (CLI) | payer MEDICARE, BC ==
[~2017-02-07] MED LIST changes: -1-ME1LIQ PO; +ADVA250A INH; -ADVAI250I PO; -AMLO10 PO; +AMLO10TA2 PO; -ASPI81TA82 PO; -ATEN-100 PO; +ATEN25TA PO; -ERTA1P IV; -VITA10002 PO
[2017-02-07 13:38] LABS: CORTISOL 6.2 MCG/DL
== END ==
LOC: PLAB 09:18
PROVIDERS: ATTEND Family Medicine
DX: R63.5 Abnormal weight gain (principal); Z68.42 Body mass index [BMI] 45.0-49.9, adult
CPT/HCPCS: 82024; 82088; 82533; 84436; 84443; 84480

== ENCOUNTER 2017-08-13 16:01 | Emergency (ER) | payer MEDICARE, BC ==
[2017-08-13] MEDS ORDERED: IOHEXOL 350 MG/ML 10 ML VIAL (for RAD DIAG) IVCONTRAST ONE (16:02)
[2017-08-13 16:04] VITALS: BP 144/71; PULSE 87; RESP 18; TEMP 98.1; O2SAT 96
--- NOTE | 2017-08-13 16:41 | PD ---
HPI Chief Complaint: Pain: Acute or Chronic Time Seen by Provider: 16:31 Travel History International Travel<30 days: No Contact w/Intl Traveler<30days: No Traveled to known affect area: No History of Present Illness HPI Patient is a 77 year old male presents to the ER for evaluation of inguinal pain on the left groin. Patient states that it started while he was standing up from the toilet 3 days ago. States worsens when he walks, stands or moves his left leg. Denies n/v/d/c. Denies dysuria, denies new growth/hernia. States went to his PCP today and [employer]/PA told him to come to the ER for evaluation. States pain is intermittent, severe at times, context and associated s/s as above. PFSH Past Medical History Hx Anticoagulant Therapy: Yes (asa 81mg) Arthritis: No Asthma: Yes Autoimmune Disease: No Anxiety: Yes Depression: No Heart Rhythm Problems: No Cancer: Yes (bladder cancer) Cardiovascular Problems: Yes (HTN) High Cholesterol: No Chemotherapy: No Chest Pain: No Congestive Heart Failure: No COPD: Yes Diabetes: Yes (pre-diabetic) Patient Takes Glucophage: No Endocrine: Yes Genitourinary: Yes Hypertension: Yes Immune Disorder: No Implanted Vascular Access Dvce: Yes Musculoskeletal: Yes Neurologic: No Psychiatric: No Reproductive: No Respiratory: Yes (COPD) Radiation Therapy: No Sickle Cell Disease: No Sleep Apnea: Yes (CPAP) Thyroid Disease: Yes (thyroidectomy PARTIAL) Past Surgical History Abdominal Surgery: Yes (HERNIA REPAIR WITH MESH REMOVAL WITH CIROMA DRAINAGE) AICD: No Arteriovenous Shunt: No Body Medical Devices: JOLANTA BLADDER Cardiac Surgery: No Ear Surgery: No Endocrine Surgery: No Eye Surgery: Yes (R CATARACT REMOVAL) Gynecologic Surgery: No Insulin Pump: No Joint Replacement: Yes (left knee replacement 2012) Oral Surgery: No Pacemaker: No Thoracic Surgery: No Other Surgery: Yes (thyroidectomy/PARTIAL) Social History Alcohol Use: Yes (rare) Tobacco Use: No (quit 1994) Substance Use: No Allergies-Medications (Allergen,Severity, Reaction): Coded Allergies: potassium (Unverified Adverse Reaction, Intermediate, [place] veins per pt, 04/01/17) no iv K+ potassium bicarbonate (Unverified Adverse Reaction, Intermediate, [place]illo veins per pt, 04/01/17) no iv K+ potassium chloride (Unverified Adverse Reaction, Intermediate, [place]gad[place] veins per pt, 04/01/17) no iv K+ potassium iodide (Unverified Adverse Reaction, Intermediate, delgadillo veins per pt, 04/01/17) no iv K+ potassium phosphate (Unverified Adverse Reaction, Intermediate, delgadillo veins per pt, 04/01/17) no iv K+ *MDRO Multi-Drug Resistant Organism (Verified Adverse Reaction, Unknown, ) ESBL+E.Coli (urine-05/16/16) Reported Meds & Prescriptions Reported Meds & Active Scripts Active Flexeril (Cyclobenzaprine HCl) 10 Mg Tab 10 Mg PO TID Reported Advair Diskus Inh (Fluticasone-Salmeterol Inh) 250-50 Mcg/Blist Aer 1 Puff INH BID Rinse mouth after use. Atenolol 25 Mg Tab 25 Mg PO DAILY Levothyroxine (Levothyroxine Sodium) 50 Mcg Tab 50 Mcg PO DAILY Amlodipine (Amlodipine Besylate) 10 Mg Tab 10 Mg PO DAILY Review of Systems Except as stated in HPI: all other systems reviewed are Neg Physical Exam Narrative GENERAL: WD/obese male in nad. SKIN: Warm and dry. HEAD: Atraumatic. Normocephalic. EYES: Pupils equal and round. No scleral icterus. No injection or drainage. ENT: No nasal bleeding or discharge. Mucous membranes pink and moist. NECK: Trachea midline. No JVD. CARDIOVASCULAR: Regular rate and rhythm. RESPIRATORY: No accessory muscle use. Clear to auscultation. Breath sounds equal bilaterally. GASTROINTESTINAL: Abdomen soft, non-tender, nondistended. Hepatic and splenic margins not palpable. no hernia, no inguinal lymphadenopathy, no rash, no wound. : Grossly normal male genitalia, testes/scrotum normal and non-tender. MUSCULOSKELETAL: Extremities without clubbing, cyanosis, or edema. No obvious deformities. NEUROLOGICAL: Awake and alert. No obvious cranial nerve deficits. Motor grossly within normal limits. Five out of 5 muscle strength in the arms and legs. Normal speech. PSYCHIATRIC: Appropriate mood and affect; insight and judgment normal. Data Data Last Documented VS Orders Orders Basic Metabolic Panel (Bmp) (08/13/17 16:37) Complete Blood Count With Diff (08/13/17 16:37) Ct Abd/Pel W Iv Contrast(Rout) (08/13/17 16:37) Iv Access Insert/Monitor (08/13/17 16:37) Ecg Monitoring (08/13/17 16:37) Oximetry (08/13/17 16:37) Sodium Chloride 0.9% Flush (Ns Flush) (08/13/17 16:45) Morphine Inj (Morphine Inj) (08/13/17 16:45) Acetamin-Hydrocod 325-5 Mg ([place] 5-325 (08/13/17 18:45) Iohexol 350 Inj (Omnipaque 350 Inj) (08/13/17 16:02) Ed Discharge Order (08/13/17 19:24) Labs Laboratory Tests Test 08/13/17 17:30 White Blood Count 12.6 TH/MM3 Red Blood Count 5.03 MIL/MM3 Hemoglobin 13.3 GM/DL Hematocrit 41.4 % Mean Corpuscular Volume 82.2 FL Mean Corpuscular Hemoglobin 26.5 PG Mean Corpuscular Hemoglobin Concent 32.3 % Red Cell Distribution Width 16.2 % Platelet Count 222 TH/MM3 Mean Platelet Volume 9.4 FL Neutrophils (%) (Auto) 72.6 % Lymphocytes (%) (Auto) 17.8 % Monocytes (%) (Auto) 8.5 % Eosinophils (%) (Auto) 0.8 % Basophils (%) (Auto) 0.3 % Neutrophils # (Auto) 9.2 TH/MM3 Lymphocytes # (Auto) 2.3 TH/MM3 Monocytes # (Auto) 1.1 TH/MM3 Eosinophils # (Auto) 0.1 TH/MM3 Basophils # (Auto) 0.0 TH/MM3 CBC Comment DIFF FINAL Differential Comment Blood Urea Nitrogen 22 MG/DL Creatinine 1.33 MG/DL Random Glucose 92 MG/DL Calcium Level 8.9 MG/DL Sodium Level 139 MEQ/L Potassium Level 4.1 MEQ/L Chloride Level 105 MEQ/L Carbon Dioxide Level 26.2 MEQ/L Anion Gap 8 MEQ/L Estimat Glomerular Filtration Rate 52 ML/MIN MDM Medical Decision Making Medical Screen Exam Complete: Yes Emergency Medical Condition: Yes Differential Diagnosis Groin pain, hernia, abdominal pain, diverticulitis, muscle strain. Narrative Course Per patient, sent in by PCP for workup including CT. Given age and limited exam 2/2 habitus i agree is indicated to rule out surgical emergency: Labs reassuring. Last 24 hours Impressions Abdomen/Pelvis CT 08/13/17 [id number] Signed Impressions: Service Date/Time: Sunday, August 13, 2017 18:43 - CONCLUSION: 1. No acute CT abnormality. Specifically, no evidence for inguinal hernia. 2. Ancillary findings include postsurgical features of anterior abdominal wall hernia mesh repair, sigmoid diverticulosis, bilateral renal cystic lesions, left adrenal mass, and subcentimeter cystic hepatic lesions. Hussein Seymour MD discussed with patient reassuring CT scan. Discussed need for symptoamtic management and follow up with PCP. Discussed return to ED criteria. While no definative cause of pain identified, likely muscular given history. Diagnosis Primary Impression: Left inguinal pain Med/Other Pt SpecificInfo: Prescription(s) given Scripts Cyclobenzaprine (Flexeril) 10 Mg Tab 10 MG PO TID for Muscle Spasm, #30 TAB 0 Refills Prov: Mao Leal MD 08/13/17 Disposition: 01 DISCHARGE HOME Condition: Stable Mao Leal MD Aug 13, 2017 16:41
[2017-08-13] MEDS ORDERED: MORPHINE SULFATE 2 MG/ML INJ IV PUSH ONE (16:45)
[2017-08-13] MEDS ORDERED: SODIUM CHLORIDE 0.9% FLUSH 10 ML FLUSH IV FLUSH PRN (16:45)
[2017-08-13 17:54] LABS: AUTOMATED NEUTROPHIL # 9.2 TH/MM3 (1.8-7.7); BASOPHIL % 0.3 % (0.0-2.0); EOSINOPHIL # 0.1 TH/MM3 (0-0.4); EOSINOPHIL % 0.8 % (0.0-4.0); HEMATOCRIT 41.4 % (39.0-51.0); HEMOGLOBIN 13.3 GM/DL (13.0-17.0); LYMPH % 17.8 % (9.0-44.0); LYMPHOCYTE # 2.3 TH/MM3 (1.0-4.8); MEAN CELL VOLUME 82.2 FL (80.0-100.0); MEAN CORPUSCULAR HEMOGLOBIN 26.5 PG (27.0-34.0); MEAN CORPUSCULAR HGB CONC 32.3 % (32.0-36.0); MEAN PLATELET VOLUME 9.4 FL (7.0-11.0); MONO % 8.5 % (0.0-8.0); MONOCYTE # 1.1 TH/MM3 (0-0.9); NEUT % 72.6 % (16.0-70.0); PLATELET COUNT 222 TH/MM3 (150-450); RED BLOOD COUNT 5.03 MIL/MM3 (4.50-5.90); RED CELL DISTRIBUTION WIDTH 16.2 % (11.6-17.2); WHITE BLOOD COUNT 12.6 TH/MM3 (4.0-11.0)
[2017-08-13 18:04] LABS: BICARBONATE 26.2 MEQ/L (21.0-32.0); CALCIUM 8.9 MG/DL (8.5-10.1); CREATININE 1.33 MG/DL (0.60-1.30)
[2017-08-13] MEDS ORDERED: ACETAMINOPHEN/HYDROcodone 325 MG/5 MG TAB PO ONE (18:45)
--- NOTE | 2017-08-13 19:22 | RADRPT ---
EXAM DATE/TIME: 08/13/2017 18:43 [facility] COMPARISON: CT ABDOMEN & PELVIS W CONTRAST, May 16, 2016, 15:19. INDICATIONS : Diffuse groin pain for three days. IV CONTRAST: 96 cc Omnipaque 350 (iohexol) IV ORAL CONTRAST: No oral contrast ingested. RADIATION DOSE: 33.74 CTDIvol (mGy) ; Patient body habitus MEDICAL HISTORY : Hypertension. Chronic obstructive pulmonary disease. Diabetes mellitus type 2.Bladder cancer. SURGICAL HISTORY : None. ENCOUNTER: Initial ACUITY: 3 days PAIN SCALE: 10/10 LOCATION: Bilateral lower quadrant TECHNIQUE: Volumetric scanning of the abdomen and pelvis was performed. Using automated exposure control and ad justment of the mA and/or kV according to patient size, radiation dose was kept as low as reasonably achievable to obtain optimal diagnostic quality images. DICOM format image data is available electro nically for review and comparison. FINDINGS: LOWER LUNGS: The visualized lower lungs are clear. LIVER: Stable subcentimeter hypodense cystic lesion in segment 3 adjacent falciform ligament. A second subce ntimeter cystic lesion in the inferior segment 5. Liver is otherwise stable. SPLEEN: Normal size without lesion. PANCREAS: Within normal limits. KIDNEYS: Redemonstration of bilateral primarily subcentimeter renal cystic lesions. The larger lesions demonst rate simple fluid density. Stable punctate calyceal calculi in the superior and mid right kidney. No hydronephrosis. ADRENAL GLANDS: Stable 2.6 cm left adrenal mass. VASCULAR: There is no aortic aneurysm. BOWEL/MESENTERY: Redemonstration of postsurgical changes in the anterior abdomen with adherent bowel loops to the ante rior abdominal wall without evidence for obstruction. Sigmoid diverticuli without evidence for signif icant inflammatory change. No free fluid or drainable fluid collection in the abdomen. ABDOMINAL WALL: Postsurgical features of prior abdominal wall hernia mesh repair. RETROPERITONEUM: Numerous surgical clips in the inferior retroperitoneum BLADDER: Stable in appearance. REPRODUCTIVE: Within normal limits. INGUINAL: There is no lymphadenopathy or hernia. MUSCULOSKELETAL: Within normal limits for patient age. CONCLUSION: 1. No acute CT abnormality. Specifically, no evidence for inguinal hernia. 2. Ancillary findings include postsurgical features of anterior abdominal wall hernia mesh repair, si gmoid diverticulosis, bilateral renal cystic lesions, left adrenal mass, and subcentimeter cystic hep atic lesions. Hussein Seymour MD on August 13, 2017 at 19:14 Board Certified Radiologist. This report was verified electronically.
[2017-08-13 19:24] VITALS: BP 147/67; PULSE 64; RESP 16; O2SAT 98
[2017-08-13] MEDS ORDERED: CYCL10TA PO (19:25)
== END 2017-08-13 21:02 | disposition home or self-care (01) ==
LOC: NEPE 16:01
DX: R10.32 Left lower quadrant pain (principal); K57.30 Diverticulosis of large intestine without perforation or abscess without bleeding; I10 Essential (primary) hypertension; J44.9 Chronic obstructive pulmonary disease, unspecified; Z79.82 Long term (current) use of aspirin; Z87.891 Personal history of nicotine dependence
CPT/HCPCS: 74177; 80048; 85025; 96374; 99285; J2270; Q9967